=== PATIENT | female | born 1965 | race Caucasian/White ===

== ENCOUNTER 2021-06-17 10:02 | Day surgery (SDCO) | payer OTHER ==
[~2021-06-17] VITALS: Ht 172.7 cm; Wt 63.5 kg
[~2021-06-17 10:02] MED LIST: ALDACTONE100 MG PO; ASCORBIC ACID500 MG PO; B COMPLEX1 EACH PO; LOVAZA1 GM PO; MULTIVITAMIN1 EACH PO; TURMERIC500 M1 PO; VITAMIN D350 MC4 PO
[2021-06-17 11:03] LABS: HCT 38.7 % (37.0-47.0); HGB 13.2 g/dl (12.5-16.0); MCH 31.2 pg (25.0-31.0); MCHC 34.1 g/dL (32.0-36.0); MCV 91.5 fL (78.0-100.0); MPV 9.8 fL (6.0-9.5); RBC 4.23 M/uL (4.20-5.40); RDW 13.2 % (11.5-14.0); WBC 5.4 K/uL (4.0-10.5)
[2021-06-17] MEDS ORDERED: PERCOCET 5-3251 EACH PO (16:28)
[2021-06-17] MEDS ORDERED: ONDANSETRON ODT4 MG PO (16:28)
[2021-06-17] MEDS ORDERED: COLACE100 MG PO (16:28)
[2021-06-17] MEDS ORDERED: IBUPROFEN800 M1 PO (16:28)
[2021-06-18 05:25] LABS: BASOPHIL 0.2 % (0-2); EOSINOPHIL 0.2 % (0-5); HCT 35.3 % (37.0-47.0); HGB 12.2 g/dl (12.5-16.0); LYMPHOCYTE 28.7 % (15-48); MCH 31.9 pg (25.0-31.0); MCHC 34.6 g/dL (32.0-36.0); MCV 92.2 fL (78.0-100.0); MONOCYTE 6.4 % (0-12); MPV 9.7 fL (6.0-9.5); NEUTROPHIL 64.3 % (41-80); NRBC 0; PLT 232 K/uL (150-400); RBC 3.83 M/uL (4.20-5.40); RDW 13.1 % (11.5-14.0)
[2021-06-18 05:26] LABS: WBC 9.7 K/uL (4.0-10.5)
== END 2021-06-18 09:15 | disposition home or self-care (01) ==
LOC: FAS 10:02 → FOB 16:36
PROVIDERS: ADMIT Obstetrics & Gynecology
DX: D25.9 Leiomyoma of uterus, unspecified (principal); N80.0 Endometriosis of uterus; Z72.89 Other problems related to lifestyle
CPT/HCPCS: 36415; 85025; 86850; 86900; 86901; 87088; 93005; G0378; J0690; J1100; J1170; J1885; J2405; J2704; J2710; J3010; J7120